=== PATIENT | male | born 1980 | race Caucasian/White ===

== ENCOUNTER → 2017-01-24 | Outpatient (CLI) | payer OTHER | LOC: GIMAGING 14:35 | PROVIDERS: ATTEND Registered Nurse | DX: M79.604 Pain in right leg (principal) | CPT/HCPCS: 73590-PO ==

== ENCOUNTER 2018-12-19 13:55 | Emergency (ER) | payer OTHER | END 2018-12-19 18:10 | disposition home or self-care (01) ==